=== PATIENT | male | born 1935 | race African-American/Black ===

== ENCOUNTER → 2023-06-27 | Outpatient (CLI) | payer MEDICARE, OTHER ==
[~2023-06-27] MED LIST: FURO20TA4 PO; PRAVASTATIN
== END | disposition home or self-care (01) ==
LOC: RAD 10:49
PROVIDERS: ATTEND Internal Medicine Hematology & Oncology
DX: M48.56XA Collapsed vertebra, not elsewhere classified, lumbar region, initial encounter for fracture (principal); D47.2 Monoclonal gammopathy; I70.0 Atherosclerosis of aorta; J44.9 Chronic obstructive pulmonary disease, unspecified; J84.89 Other specified interstitial pulmonary diseases; M47.812 Spondylosis without myelopathy or radiculopathy, cervical region; M48.02 Spinal stenosis, cervical region; M43.22 Fusion of spine, cervical region; M47.814 Spondylosis without myelopathy or radiculopathy, thoracic region; M47.817 Spondylosis without myelopathy or radiculopathy, lumbosacral region; M25.852 Other specified joint disorders, left hip; M25.851 Other specified joint disorders, right hip; Q74.1 Congenital malformation of knee
CPT/HCPCS: 77075

== ENCOUNTER → 2023-08-29 | Outpatient (CLI) | payer MEDICARE, OTHER | END | disposition home or self-care (01) | LOC: RAD 10:22 | PROVIDERS: ATTEND Internal Medicine Hematology & Oncology | DX: M81.0 Age-related osteoporosis without current pathological fracture (principal); M85.88 Other specified disorders of bone density and structure, other site; D47.2 Monoclonal gammopathy | CPT/HCPCS: 77080 ==